=== PATIENT | male | born 1990 | race Hispanic/Latino ===

== ENCOUNTER → 2021-03-23 | Emergency (ER) | payer SELFPAY ==
[~2021-03-23] VITALS: Ht 167.6 cm; Wt 63.5 kg
[~2021-03-23] MED LIST: AMOXICILLIN500 MG PO; DEXAMETHASONE 4 MG TAB PO STA; KETOROLAC TROMETHAMINE 30 MG/ML VIAL IM STA
[2021-03-23 13:53] VITALS: BP 134/62
== END | disposition home or self-care (01) ==
LOC: ER 12:34
DX: R50.9 Fever, unspecified (principal); J02.0 Streptococcal pharyngitis
CPT/HCPCS: 83518; 99282; J1885; J8540